=== PATIENT | female | born 1940 | race Caucasian/White ===

== ENCOUNTER 2018-05-19 08:30 | Inpatient (IN) ==
[2018-05-19] MEDS ORDERED: Dexamethasone Inj 20 MG/5 ML Vial IV.PUSH ONE (09:34)
[2018-05-19] MEDS ORDERED: Chlorhexidine 4% Topical 120 APPLIC/120 ML Bottle TOPICAL SCH (09:45)
[2018-05-19] MEDS ORDERED: Sodium Chlor 0.9% Inj 500 ML IV.CONT ONE (09:45)
[2018-05-19] MEDS ORDERED: Chlorhexidine Gluconate 2% 1 Pack (2 Cloths) TOPICAL ONE (09:45)
[2018-05-19] MEDS ORDERED: Metoprolol Tartrate 25 MG Tablet PO ONE (09:45)
[2018-05-19] MEDS ORDERED: Vancomycin Inj 1,000 MG in Sodium Chlor 0.9% Inj 250 ML IV.SIG SCH (10:00)
[2018-05-19] MEDS ORDERED: ceFAZolin 2 GM Premix Inj 2 GM/50 ML PIGGYBACK IV.SIG SCH (10:00)
[2018-05-19] MEDS ORDERED: Zolpidem Tartrate 5 MG Tablet PO PRN (10:18)
[2018-05-19] MEDS ORDERED: Bisacodyl 10 MG Supp RECTAL PRN (10:18)
[2018-05-19] MEDS ORDERED: HYDROmorphone PF Inj 1 MG/ML Ampul IV.PUSH PRN (10:18)
[2018-05-19] MEDS ORDERED: Sodium Chlor 0.9% Inj 40 ML, Bupivacaine Liposo PF 1.3% Inj 20 ML P-ARTICULR SCH ×2 (10:30)
[2018-05-19] MEDS ORDERED: TRANEXAMIC ACID IV.SIG SCH (10:30)
[2018-05-19] MEDS ORDERED: SODIUM CHLOR 0.9% IV.SIG SCH (10:30)
[2018-05-19] MEDS ORDERED: Clindamycin Inj 900 MG/6 ML Vial ONE (11:43)
[2018-05-19] MEDS: Sodium Chlor 0.9% Inj 100 ML, Tranexamic Acid Inj 3,000 MG P-ARTICULR ONE ×4 (13:00→14:56)
--- NOTE | 2018-05-19 13:20 | P.OP ---
Procedure: PREOPERATIVE DIAGNOSIS: Right hip osteoarthritis. POSTOPERATIVE DIAGNOSIS: Right hip osteoarthritis. PROCEDURE PERFORMED: Right total hip arthroplasty. SURGEON: Dr. Matthew Greco M.D. CHILD & ADOLESCENT PSYCHIATRIST: MARIA GUADALUPE Rdz. ANESTHESIA: General. ESTIMATED BLOOD LOSS: 250 mL. COMPLICATIONS: None. IMPLANTS USED: Depuy Corail femoral stem []15 Fate Gripsion Cup []52 Poly insert liner neutral [] femoral head [] 36 mm cobalt chrome neck length [] +1.5 JUSTIFICATION: This patient presents to the undersigned at the orthopedic clinic with chief complaints of severe Right hip pain. The pain is severe and constant and interferes with activities of daily living. The patient has failed greater than 3 months of nonoperative conservative treatment to include analgesic and nonsteroidal anti-inflammatory medications, physical therapy, cortisone injections, activity modification, weight loss, home exercise program, and use of ambulatory assistive aids. X-rays of right hip reveal severe osteoarthritis with [id number] joint space narrowing, subchondral sclerosis, subchondral cysts, osteophyte formation with subluxation. The patient was counseled on risks, benefits, and alternatives to a total hip arthroplasty. The risks were discussed, which include, but are not limited to, anesthesia, bleeding, infection, damage to nerves and blood vessels , pain, stiffness, fracture, dislocations, leg length discrepancy, failure of components, blood clots, pulmonary embolus, and even . The patient favored the benefits over the risks, did wish to proceed with surgery. PROCEDURE IN DETAIL: Written consent was obtained. The patient was identified by name, taken to the operating room and placed supine on the operating table. General anesthesia was administered. The patient was preoperative IV antibiotics. The patient right and left feet were placed in the padded traction boots. The right hip and lower extremity was then prepped and draped using isopropyl alcohol, Hibiclens solution and ChloraPrep solution. After a timeout was performed, a longitudinal incision was made over the anterior aspect of the right hip. The fascia linette was incised. Dissection was carried over the tensor fascia linette beneath the rectus femoris. After exposure of the anterior capsule, a capsulotomy incision was performed. An oscillating saw was used to perform a femoral neck cut. The osteoarthritic femoral head and neck was removed. A 10 blade scalpel was used to excise the labrum. Sequential reaming of the acetabulum was performed. Subsequently a porous-coated titanium acetabular cup was implanted in a press manner in approximately 45 degrees of abduction and 10 degrees of anteversion. There was good purchase and fixation after insertion of the acetabular cup. The cup was tested manually and noted to have excellent stability and fixation. A neutral highly cross-linked polyethylene liner was placed within the cup. The liner was impacted in place for fixation and tested for stability. Attention was turned to the femur where the leg was externally rotated, extended and adducted. The capsule was released off the undersurface of the greater trochanter to allow for elevation and lateralization of the femur. A box cutting osteotome was used to gain entrance into the intramedullary canal of the femur. This was followed by a canal finder and sequential broaching. A calcar planer to plane the calcar. A trial head and neck combination were evaluated prior to implantation of final components. With the final implants placed, the leg could achieve external rotation of 70 degrees and extension to the the ground without evidence of anterior instability or impingement. Soft tissue tension felt appropriate. Fluoroscopic imaging showed appropriate implantation of components. The Surgical wound was thoroughly irrigated with sterile saline Pulse Lavage antibiotic impregnated solution. The fascial layer was closed with #1 Vicryl suture, subcutaneous layer with 2-0 Vicryl sutures. The skin was closed with Dermabond. Sterile dressing applied. No intraoperative complications noted. Leandro Fowler, Physician Film Splicer, Certified was present for the entire procedure to include the patient position, the procedure itself. The medical necessity of a physician expanded function dental assistant was indicated in this case due to the complexity of the procedure. He assisted with position of the patient along with the ear itself. During the procedure he assisted with exposure and the retraction of muscle, tendon, bone, and neurovascular vessel structures. He assisted with the preparation of bone and also implantation of the prosthetic replacement. There was a professor of industrial technology in the room that assisted with management of instruments, but was not available to assist with the surgery itself. Matthew Sterling MD Surgeon: Matthwe Sterling MD
[2018-05-19] MEDS ORDERED: Post-op Orders (for Pharmacy) OTHER STA (13:45)
[2018-05-19] MEDS ORDERED: fentaNYL Citrate Inj 100 MCG/2 ML Ampul ONE ×2 (13:49→13:50)
[2018-05-19] MEDS ORDERED: *morphine SULFATE 4 MG/ML PERIprocedure ONLY ONE (13:50)
--- NOTE | 2018-05-19 14:08 | XR ---
EXAM DATE: 05/19/2018 1:58 PM EST AGE/SEX: 77 years / Female INDICATIONS: Total right hip replacement. CLINICAL DATA: This is the patient's initial encounter. Patient reports that signs and symptoms have been present for 1 day and indicates a pain score of Nonresponsive. MEDICAL/SURGICAL HISTORY: None. None. COMPARISON: No prior exams available for comparison. FINDINGS: Multiple coned down views of the right hip were obtained with a matrix camera intraoperatively and de monstrate that the patient is status post right hip arthroplasty. The femoral and acetabular componen ts are intact and in normal alignment. There is poor bony detail. CONCLUSION: Expected postoperative changes status post right hip arthroplasty. Electronically signed by: Darien Sewell MD 05/19/2018 2:07 PM EST
[2018-05-19] MEDS ORDERED: *morphine SULFATE 10 MG/ML PERIprocedure ONLY ONE (14:40)
--- NOTE | 2018-05-19 14:50 | XR ---
EXAM DATE: 05/19/2018 2:41 PM EST AGE/SEX: 77 years / Female INDICATIONS: Post-op total right hip arthroplasty. CLINICAL DATA: This is the patient's initial encounter. Patient reports that signs and symptoms have been present for 1 day and indicates a pain score of 5/10. MEDICAL/SURGICAL HISTORY: None. None. COMPARISON: No prior exams available for comparison. FINDINGS: The patient is status post a total hip arthroplasty. Prosthesis is well-seated. Alignment is anatomic . A fracture is not appreciated. CONCLUSION: Anatomic alignment. Dandy Demarco MD FACR Electronically signed by: Dandy Demarco MD 05/19/2018 2:49 PM EST
[2018-05-19] MEDS ORDERED: diphenhydrAMINE HCl 50 MG/ML VIAL IV.PUSH ONE (15:03)
[2018-05-19] MEDS: Clindamycin 900 mg/NS Premix 900 MG/50 ML PIGGYBACK IV.SIG SCH (20:56)
[2018-05-19] MEDS: Multivitamin/Minerals Therapeutic Tablet PO SCH (20:57)
[2018-05-19] MEDS: Senna/Docusate Sodium 8.6/50 MG Tablet PO SCH (20:57)
[2018-05-20] MEDS: Clindamycin 900 mg/NS Premix 900 MG/50 ML PIGGYBACK IV.SIG SCH (03:30)
[2018-05-20 06:19] LABS: Hematocrit 33.9 % (35.0-46.0); Hemoglobin 11.3 gm/dL (11.6-15.3)
--- NOTE | 2018-05-20 08:01 | P.DCO ---
- Physical Therapy Physical Therapy: Gait training, Safety evaluation Hip: Total hip, Protocol: Right Right Lower Extremity Weight Bearing: Weight bearing as tolerated - Nursing RN days per week: 1 Nursing: Dressing changes Dressing changes: Do not change dressing - Certification Need for Home Health services: I have seen patient Alexandrea Merrill on 05/20/18. My clinical findings support the need for the requested home health care services because: Need for Home Health Services: Limited ability to care for self, High risk of falls Homebound Certification: I certify that my clinical findings support that this patient is homebound because: Homebound Certification: Post-op weakness, Unsteady gait/balance
--- NOTE | 2018-05-20 08:01 | P.PNOP ---
Subjective Interval history: doing well. Physical Exam Vital signs: Vital Signs 05/19/18 13:40 05/19/18 14:00 05/19/18 14:15 Temperature 97.3 F L Pulse Rate 63 55 L 49 L Respiratory Rate 13 24 20 Blood Pressure 120/65 107/57 L 101/55 L Pulse Oximetry 97 97 97 05/19/18 15:00 05/19/18 16:00 05/19/18 17:10 Temperature 97.3 F L Pulse Rate 54 L 57 L 55 L Respiratory Rate 16 18 18 Blood Pressure 112/58 L 137/65 141/65 H Pulse Oximetry 97 96 97 05/19/18 20:51 05/20/18 00:00 05/20/18 04:40 Temperature 97.7 F 98.1 F 97.9 F Pulse Rate 72 85 66 Respiratory Rate 18 17 17 Blood Pressure 146/65 H 131/68 129/66 Pulse Oximetry 98 96 95 Intake & Output 05/19/18 05/20/18 05/20/18 18:59 06:59 18:59 Intake Total 800 / 800 1580 / 1580 Output Total 300 / 300 Balance 500 / 500 1580 / 1580 Weight 72.9 kg 75.2 kg Intake: IV 1100 / 1100 LR 1000 mL Inj 1,000 ML @ 80 1000 / 1000 mls/hr IV.CONT .[id number] JOHAN Rx# :[id number] Cleocin 900 mg/NS Premix 900 mg 100 / 100 In 50 ml @ 100 mls/hr IV.SIG Q8H JOHAN Rx#:[id number] Oral 480 / 480 Anesthesia Amount 800 / 800 Output: Estimated Blood Loss 300 / 300 Other: # Voids 3 Date of Last Bowel Movement 05/18/18 05/18/18 Weight On Admission 72.9 kg Narrative: in chair, nad dressing c/d/i thigh soft neg homans nvi Results - Labs CBC & Chem 7: 05/20/18 05:24 Laboratory Results - last 24 hr 05/19/18 05/20/18 09:16 05:24 Hgb 11.3 L Hct 33.9 L Blood Type O Positive Blood Type Recheck Required Antibody Screen Negative - Imaging Impressions Hip X-Ray 05/19/18 00:00 CONCLUSION: Expected postoperative changes status post right hip arthroplasty. Hip X-Ray 05/19/18 10:17 CONCLUSION: Anatomic alignment. Dadny Demarco MD FACR Assessment and Plan - Ortho Post Op Day # 1 - Assessment and Plan s/p R JAE wbat ok to maintain dressing unless saturated asa 81 d/c planning home with PT - cleared f/up dr. herr 2 weeks
[2018-05-20] MEDS: Multivitamin/Minerals Therapeutic Tablet PO SCH (08:26)
[2018-05-20] MEDS: Senna/Docusate Sodium 8.6/50 MG Tablet PO SCH (08:26)
== END 2018-05-20 15:15 | disposition home or self-care (01) ==
LOC: HSDI 08:30 → N06 17:06
PROVIDERS: ADMIT Orthopaedic Surgery Sports Medicine; ATTEND Orthopaedic Surgery Sports Medicine
DX: M16.11 Unilateral primary osteoarthritis, right hip